=== PATIENT | male | born 1960 | race Two or more races ===

== ENCOUNTER 2017-02-21 16:13 | Emergency (ER) | payer MEDICAID ==
[~2017-02-21] VITALS: Ht 175.3 cm; Wt 158.8 kg
[2017-02-21 16:32] VITALS: BP 137/80
[2017-02-21 17:41] LABS: Basophils # (auto) 0.1 uL; Basophils % (auto) 0.7 % (0.0-2.0); Eosinophils # (auto) 0.2 uL; Eosinophils % (auto) 1.6 % (0.0-7.0); Hematocrit 42.6 % (41.0-53.0); Hemoglobin 14.2 g/dL (13.5-17.5); Lymphocytes # (auto) 3.2 uL; Lymphocytes % (auto) 26.6 % (10.0-50.0); Mean Corpuscular Hemoglobin 27.5 pg (28.0-32.0); Mean Corpuscular Hgb Conc. 33.4 g/dL (32.0-36.0); Mean Corpuscular Volume 82.4 fL (80.0-100.0); Mean Platelet Volume 9.1 fL (6.9-10.8); Monocytes # (auto) 0.7 uL; Monocytes % (auto) 5.8 % (0.0-12.0); Neutrophils % (auto) 65.3 % (37.0-80.0); Nucleated Red Blood Cells % 0.1 %; Platelet Count (auto) 244 10^3/uL (140-450); Red Cell Distribution Width 17.8 % (11.8-14.3); White Blood Cell 12.2 10^3/uL (4.4-10.8)
[2017-02-21 18:01] LABS: Albumin 3.6 g/dL (3.4-5.0); BUN/Creatinine Ratio 9.6; Calcium 8.9 mg/dL (8.5-10.1); Potassium 3.9 mmol/L (3.5-5.1)
[2017-02-21 18:04] LABS: Bilirubin, Total 0.4 mg/dL (0.2-1.0); Total Protein 8.3 g/dL (6.4-8.2)
[2017-02-21 18:15] LABS: B-Type Natriuretic Peptide 16.07 pg/mL (0-100)
[2017-02-21 19:04] LABS: Temperature: 22.8 C (20.0-25.0)
== END 2017-02-21 23:40 | disposition left against medical advice (07) ==
LOC: ER 16:24
DX: R07.9 Chest pain, unspecified (principal); R06.02 Shortness of breath; Z53.21 Procedure and treatment not carried out due to patient leaving prior to being seen by health care provider
CPT/HCPCS: 36415; 71020; 80053; 83735; 83880; 84484; 85025; 85379; 93005

== ENCOUNTER 2020-02-28 05:16 | Inpatient (IN) | payer MEDICAID ==
[~2020-02-28] VITALS: Ht 188 cm; Wt 126.5 kg
[2020-02-28 08:33] LABS: Basophils # (auto) 0 10 ^3/uL (0-0.2); Basophils % (auto) 0.2 % (0.0-2.0); Eosinophils # (auto) 0 10 ^3/uL (0-0.8); Eosinophils % (auto) 0.1 % (0.0-7.0); Hematocrit 39.3 % (41.0-53.0); Lymphocytes # (auto) 0.6 10 ^3/uL (0.4-5.4); Lymphocytes % (auto) 6.6 % (10.0-50.0); Mean Corpuscular Hemoglobin 24.5 pg (28.0-32.0); Mean Corpuscular Hgb Conc. 33.2 g/dL (32.0-36.0); Mean Corpuscular Volume 73.7 fL (80.0-100.0); Monocytes # (auto) 0.6 10 ^3/uL (0-1.3); Monocytes % (auto) 6.2 % (0.0-12.0); Neutrophils # (auto) 8.1 10 ^3/uL (1.6-8.6); Neutrophils % (auto) 86.9 % (37.0-80.0); Nucleated Red Blood Cells % 0.1 %; Platelet Count (auto) 473 10^3/uL (140-450); Red Blood Cells 5.33 10^6/uL (4.5-5.90); Red Cell Distribution Width 18.2 % (11.8-14.3); White Blood Cell 9.3 10^3/uL (4.4-10.8)
[2020-02-28 08:56] LABS: Potassium 4.5 mmol/L (3.5-5.1)
[2020-02-28 09:32] LABS: Albumin 2.8 g/dL (3.4-5.0); BUN/Creatinine Ratio 17.2; Bilirubin, Total 0.9 mg/dL (0.2-1.0); Calcium 8.5 mg/dL (8.5-10.1); Total Protein 8.6 g/dL (6.4-8.2)
[2020-02-28] MEDS ORDERED: DexAMETHasone SOD PHOS 10MG/1ML VIAL INJ IV ONE (11:45)
[2020-02-28] MEDS ORDERED: ASPirin 81 mg TAB PO ONE (11:45)
[2020-02-28] MEDS ORDERED: ENOXAPARIN SOD 150 MG/1 ML SYRINGE SC ONE (11:45)
[2020-02-28] MEDS ORDERED: cefTRIAXone 1GM/50ML D5W 50 ML IV ONE (11:45)
[2020-02-28] MEDS ORDERED: DOXYCYCLINE 100MG/250ML 250 ML IV ONE (11:45)
[2020-02-28] MEDS ORDERED: REMDESIVIR PER PHARMACY 0 ML IV SCH (17:00)
[2020-02-28] MEDS ORDERED: NITROGLYCERIN 0.4 MG SL TAB SL PRN (17:00)
[2020-02-28] MEDS ORDERED: ACETAMINOPHEN 500 MG TAB PO PRN (17:00)
[2020-02-28] MEDS ORDERED: ALBUTEROL SULF HFA 90MCG INH 200DOSE IN PRN (17:00)
[2020-02-28] MEDS ORDERED: MORPHINE SULF INJ 2 MG/ML SYRINGE 1ML IV PRN (17:00)
[2020-02-28 18:15] LABS: Magnesium 3.1 mg/dL (1.6-2.6)
[2020-02-28 18:24] LABS: CRP High Sensitivity 17.9 mg/dL (< 0.3)
[2020-02-28] MEDS ORDERED: ZINC SULFATE 220mg CAP or TAB PO SCH (18:47)
[2020-02-28] MEDS ORDERED: CHOLECALCIFEROL (VITD3) 2,000 UNIT CAP PO SCH (18:47)
[2020-02-28] MEDS ORDERED: ASCORBIC ACID 1,000 MG TAB PO SCH (18:47)
[2020-02-28 19:15] LABS: Lactic Acid w/Reflex 2.2 mmol/L (0.4-2.0)
[2020-02-28 19:30] LABS: INR 1.13 (0.9-1.15); Partial Thromboplastin Time 33.5 sec (23.0-31.2)
[2020-02-28] MEDS ORDERED: BUDESONIDE (INHALATION) 180 MCG IH IN SCH (22:00)
[2020-02-28] MEDS: DOXYCYCLINE 100MG/250ML 250 ML IV SCH (23:22)
[2020-02-28] MEDS: ENOXAPARIN SOD 40 MG/0.4 ML SYRINGE SC SCH (23:23)
[2020-02-29 06:03] LABS: Basophils # (auto) 0 10 ^3/uL (0-0.2); Basophils % (auto) 0.6 % (0.0-2.0); Eosinophils # (auto) 0 10 ^3/uL (0-0.8); Eosinophils % (auto) 0.1 % (0.0-7.0); Hematocrit 38.6 % (41.0-53.0); Hemoglobin 12.7 g/dL (13.5-17.5); Lymphocytes # (auto) 0.9 10 ^3/uL (0.4-5.4); Lymphocytes % (auto) 13.8 % (10.0-50.0); Mean Corpuscular Hemoglobin 24.7 pg (28.0-32.0); Mean Corpuscular Volume 74.8 fL (80.0-100.0); Monocytes # (auto) 0.5 10 ^3/uL (0-1.3); Monocytes % (auto) 7.3 % (0.0-12.0); Neutrophils # (auto) 5.1 10 ^3/uL (1.6-8.6); Neutrophils % (auto) 78.2 % (37.0-80.0); Nucleated Red Blood Cells % 0.2 %; Platelet Count (auto) 501 10^3/uL (140-450); Red Blood Cells 5.16 10^6/uL (4.5-5.90); White Blood Cell 6.6 10^3/uL (4.4-10.8)
[2020-02-29 06:58] LABS: Potassium 4.6 mmol/L (3.5-5.1)
[2020-02-29 07:01] LABS: Albumin 2.7 g/dL (3.4-5.0); BUN/Creatinine Ratio 22.8
[2020-02-29 07:12] LABS: Bilirubin, Total 0.7 mg/dL (0.2-1.0); Total Protein 8.5 g/dL (6.4-8.2)
[2020-02-29] MEDS: DOXYCYCLINE 100MG/250ML 250 ML IV SCH ×2 (09:48→21:04)
[2020-02-29] MEDS: ENOXAPARIN SOD 40 MG/0.4 ML SYRINGE SC SCH ×2 (09:48→21:33)
[2020-02-29] MEDS: ASPirin-EC 81 mg tab PO SCH (10:00)
[2020-02-29] MEDS ORDERED: DexAMETHasone SOD PHOS 10MG/1ML VIAL INJ IV SCH (10:00)
[2020-02-29] MEDS ORDERED: FUROSEMIDE 40 MG/4 ML VIAL IV ONE (14:00)
[2020-02-29] MEDS: FUROSEMIDE 20 MG/2 ML VIAL IV SCH (18:00)
[2020-02-29] MEDS: methylPREDNISolone SOD SUCC 40 MG/ML VL IV SCH ×2 (19:02→21:04)
[2020-02-29] MEDS: POTASSIUM CHL 10 Meq TABLET PO SCH (21:04)
[2020-03-01] MEDS: FUROSEMIDE 20 MG/2 ML VIAL IV SCH ×2 (05:28→18:33)
[2020-03-01] MEDS: methylPREDNISolone SOD SUCC 40 MG/ML VL IV SCH ×3 (05:28→22:35)
[2020-03-01 07:25] LABS: Urine Bacteria FEW /hpf (None Seen); Urine Hyaline Cast FEW /lpf (0 - 2); Urine Mucus FEW (None Seen); Urine Specific Gravity 1.023 (1.001-1.035); Urine WBC 2 /hpf (0 - 3)
[2020-03-01 07:26] LABS: Urine Blood TRACE /uL (Negative)
[2020-03-01] MEDS: DOXYCYCLINE 100MG/250ML 250 ML IV SCH (10:00)
[2020-03-01] MEDS: ASPirin-EC 81 mg tab PO SCH (10:00)
[2020-03-01] MEDS: ENOXAPARIN SOD 40 MG/0.4 ML SYRINGE SC SCH ×3 (10:53→22:36)
[2020-03-01] MEDS: POTASSIUM CHL 10 Meq TABLET PO SCH ×2 (10:53→22:36)
[2020-03-01 11:02] LABS: Calcium 9.3 mg/dL (8.5-10.1); Potassium 4.9 mmol/L (3.5-5.1)
[2020-03-01 11:04] LABS: BUN/Creatinine Ratio 29.1
[2020-03-01] MEDS ORDERED: ALBUTEROL SULF HFA 90MCG INH 200DOSE IN PRN ×2 (19:15)
[2020-03-01] MEDS ORDERED: ACETAMINOPHEN 500 MG TAB PO PRN (19:15)
[2020-03-01] MEDS ORDERED: REMDESIVIR PER PHARMACY 0 ML IV SCH (19:15)
[2020-03-01] MEDS ORDERED: REMDESIVIR 200 MG in NS 210ml LOADING DOSE ADULT IV ONE (20:00)
[2020-03-01] MEDS ORDERED: DOXYCYCLINE 100 MG TAB/CAP PO SCH (22:00)
[2020-03-01] MEDS: BUDESONIDE (INHALATION) 180 MCG IH IN SCH (22:00)
[2020-03-01 22:19] LABS: Mean Corpuscular Volume 74.6 fL (80.0-100.0)
[2020-03-01 22:23] LABS: Hematocrit 37.4 % (41.0-53.0); Hemoglobin 12.6 g/dL (13.5-17.5); Mean Corpuscular Hemoglobin 25.1 pg (28.0-32.0); Mean Corpuscular Hgb Conc. 33.6 g/dL (32.0-36.0); Platelet Count (auto) 673 10^3/uL (140-450); Red Blood Cells 5.01 10^6/uL (4.5-5.90); Red Cell Distribution Width 18.6 % (11.8-14.3)
[2020-03-01 22:30] LABS: Albumin 2.7 g/dL (3.4-5.0); Calcium 9.1 mg/dL (8.5-10.1); Magnesium 2.7 mg/dL (1.6-2.6); Potassium 4.8 mmol/L (3.5-5.1)
[2020-03-01 22:34] LABS: Lactic Acid w/Reflex 2.6 mmol/L (0.4-2.0)
[2020-03-01 22:37] LABS: Basophils % (manual) 0 (0.0-2.0); Blast Cells 0; Eosinophils % (manual) 0 (0-7); Monocytes % (manual) 0 (0-12); Myelocytes % 0; Promyelocytes % 0; Reactive Lymphocytes 0
[2020-03-01 22:38] LABS: BUN/Creatinine Ratio 29.4; Bilirubin, Total 0.6 mg/dL (0.2-1.0); CRP High Sensitivity 5.81 mg/dL (< 0.3); Total Protein 8.2 g/dL (6.4-8.2)
[2020-03-01 23:02] LABS: Band Neutrophils % (manual) 1; Lymphocytes % (manual) 11 (10.0-50.0); Metamyelocytes % 1
[2020-03-02 00:35] VITALS: BP 138/82
[2020-03-02] MEDS: DOXYCYCLINE 100MG/250ML 250 ML IV SCH ×3 (01:10→21:23)
[2020-03-02 05:45] LABS: Basophils # (auto) 0 10 ^3/uL (0-0.2); Eosinophils # (auto) 0 10 ^3/uL (0-0.8); Hemoglobin 12.6 g/dL (13.5-17.5); Monocytes # (auto) 0.7 10 ^3/uL (0-1.3); Nucleated Red Blood Cells % 0.1 %
[2020-03-02 05:48] LABS: Basophils % (auto) 0.2 % (0.0-2.0); Lymphocytes # (auto) 0.8 10 ^3/uL (0.4-5.4); Lymphocytes % (auto) 7.2 % (10.0-50.0); Mean Corpuscular Hemoglobin 24.9 pg (28.0-32.0); Mean Corpuscular Hgb Conc. 33.1 g/dL (32.0-36.0); Monocytes % (auto) 6.2 % (0.0-12.0); Neutrophils # (auto) 9.2 10 ^3/uL (1.6-8.6); Neutrophils % (auto) 86.4 % (37.0-80.0); Platelet Count (auto) 580 10^3/uL (140-450); Red Blood Cells 5.06 10^6/uL (4.5-5.90); Red Cell Distribution Width 18.5 % (11.8-14.3); White Blood Cell 10.7 10^3/uL (4.4-10.8)
[2020-03-02 05:54] LABS: Albumin 2.6 g/dL (3.4-5.0); Magnesium 2.7 mg/dL (1.6-2.6); Potassium 5.2 mmol/L (3.5-5.1)
[2020-03-02 05:58] LABS: BUN/Creatinine Ratio 33.1; Bilirubin, Total 0.5 mg/dL (0.2-1.0); Calcium 8.9 mg/dL (8.5-10.1); Total Protein 7.9 g/dL (6.4-8.2)
[2020-03-02] MEDS: FUROSEMIDE 20 MG/2 ML VIAL IV SCH (06:33)
[2020-03-02] MEDS: methylPREDNISolone SOD SUCC 40 MG/ML VL IV SCH (06:33)
[2020-03-02 08:00] VITALS: BP 133/86
[2020-03-02] MEDS ORDERED: cefTRIAXone 1GM/50ML D5W 50 ML IV SCH (09:00)
[2020-03-02] MEDS: POTASSIUM CHL 10 Meq TABLET PO SCH (09:20)
[2020-03-02] MEDS: ASPirin-EC 81 mg tab PO SCH (09:22)
[2020-03-02] MEDS: ZINC SULFATE 220mg CAP or TAB PO SCH (09:23)
[2020-03-02] MEDS: ASCORBIC ACID 1,000 MG TAB PO SCH (09:23)
[2020-03-02] MEDS: CHOLECALCIFEROL (VITD3) 2,000 UNIT CAP PO SCH (09:23)
[2020-03-02] MEDS: DexAMETHasone SOD PHOS 10MG/1ML VIAL INJ IV SCH (09:24)
[2020-03-02] MEDS: ENOXAPARIN SOD 40 MG/0.4 ML SYRINGE SC SCH ×3 (09:26→21:23)
[2020-03-02] MEDS: AZITHROMYCIN 500MG/ 250ML 250 ML IV SCH ×2 (09:26→11:22)
[2020-03-02] MEDS: BUDESONIDE (INHALATION) 180 MCG IH IN SCH ×2 (10:00→21:42)
[2020-03-02] MEDS ORDERED: AZITHROMYCIN 500MG/ 250ML 250 ML IV SCH (10:00)
[2020-03-02] MEDS ORDERED: HYDROcodone-ACET 10/325MG TAB PO PRN (11:00)
[2020-03-02] MEDS ORDERED: MORPHINE SULF INJ 2 MG/ML SYRINGE 1ML IV PRN ×2 (13:30→18:30)
[2020-03-02] MEDS ORDERED: REMDESIVIR 100 MG in SODIUM CHL 0.9% 250 ML IV SCH (15:00)
[2020-03-02 16:00] VITALS: BP 131/93
[2020-03-02] MEDS ORDERED: ACLI1AER2 IN (18:20)
[2020-03-02] MEDS ORDERED: FLUT0.05 NAS (18:20)
[2020-03-02] MEDS ORDERED: HYDR-4833 PO ×2 (18:20)
[2020-03-02] MEDS ORDERED: FLU220IH INH (18:20)
[2020-03-02] MEDS ORDERED: LOSA-39 PO (18:20)
[2020-03-02] MEDS ORDERED: OMEP20TA PO (18:20)
[2020-03-02] MEDS ORDERED: LORA2TAB89 PO (18:20)
[2020-03-02] MEDS ORDERED: DOCU-94 PO (18:20)
[2020-03-02] MEDS ORDERED: ALBU2TAB4 PO (18:20)
[2020-03-02] MEDS ORDERED: ALBUAER3 IN (18:28)
[2020-03-02] MEDS: SALINE 0.65 % NASAL SPRAY 45ML BOTTLE EACHNOSTRI SCH (21:22)
[2020-03-03] VITALS: BP 126/77
[2020-03-03 06:55] LABS: Basophils # (auto) 0 10 ^3/uL (0-0.2); Eosinophils # (auto) 0 10 ^3/uL (0-0.8); Mean Corpuscular Hemoglobin 24.4 pg (28.0-32.0); Nucleated Red Blood Cells % 0.1 %
[2020-03-03 06:58] LABS: Basophils % (auto) 0.1 % (0.0-2.0); Eosinophils % (auto) 0.2 % (0.0-7.0); Hemoglobin 13.8 g/dL (13.5-17.5); Lymphocytes # (auto) 1.3 10 ^3/uL (0.4-5.4); Lymphocytes % (auto) 10.8 % (10.0-50.0); Mean Corpuscular Hgb Conc. 32.8 g/dL (32.0-36.0); Mean Corpuscular Volume 74.5 fL (80.0-100.0); Monocytes # (auto) 0.6 10 ^3/uL (0-1.3); Monocytes % (auto) 4.7 % (0.0-12.0); Neutrophils # (auto) 10.5 10 ^3/uL (1.6-8.6); Neutrophils % (auto) 84.2 % (37.0-80.0); Platelet Count (auto) 719 10^3/uL (140-450); Red Blood Cells 5.63 10^6/uL (4.5-5.90); Red Cell Distribution Width 18.5 % (11.8-14.3); White Blood Cell 12.5 10^3/uL (4.4-10.8)
[2020-03-03 07:11] LABS: Potassium 4.2 mmol/L (3.5-5.1)
[2020-03-03 07:23] LABS: Albumin 2.9 g/dL (3.4-5.0); BUN/Creatinine Ratio 34.4; Bilirubin, Total 0.7 mg/dL (0.2-1.0); CRP High Sensitivity 2.3 mg/dL (< 0.3); Calcium 9.2 mg/dL (8.5-10.1); Total Protein 8.3 g/dL (6.4-8.2)
[2020-03-03 08:00] VITALS: BP 134/61
[2020-03-03] MEDS: ASCORBIC ACID 1,000 MG TAB PO SCH (10:00)
[2020-03-03] MEDS: ZINC SULFATE 220mg CAP or TAB PO SCH (10:00)
[2020-03-03] MEDS: ASPirin-EC 81 mg tab PO SCH (10:00)
[2020-03-03] MEDS: CHOLECALCIFEROL (VITD3) 2,000 UNIT CAP PO SCH (10:00)
[2020-03-03] MEDS: FUROSEMIDE 20 MG/2 ML VIAL IV SCH (10:00)
[2020-03-03] MEDS: BUDESONIDE (INHALATION) 180 MCG IH IN SCH ×2 (10:00→18:49)
[2020-03-03] MEDS: SALINE 0.65 % NASAL SPRAY 45ML BOTTLE EACHNOSTRI SCH ×2 (10:00→22:00)
[2020-03-03] MEDS ORDERED: MORPHINE SULFATE 4 MG/ML SYR/VIAL ONE (10:10)
[2020-03-03] MEDS ORDERED: MORPHINE SULFATE 4 MG/ML SYR/VIAL IV ONE (10:15)
[2020-03-03] MEDS ORDERED: HYDROcodone-ACET 10/325MG TAB PO PRN (10:45)
[2020-03-03] MEDS: DOXYCYCLINE 100MG/250ML 250 ML IV SCH ×2 (11:04→22:48)
[2020-03-03] MEDS: DexAMETHasone SOD PHOS 10MG/1ML VIAL INJ IV SCH (11:05)
[2020-03-03] MEDS: ENOXAPARIN SOD 40 MG/0.4 ML SYRINGE SC SCH ×2 (11:05→22:47)
[2020-03-03] MEDS: LORazepam 2MG/ML-1ML VIAL IV PRN ×3 (13:09→22:47)
[2020-03-03 16:00] VITALS: BP 108/58
[2020-03-03] MEDS: ALPRAZolam 0.25 MG TAB PO SCH (19:46)
[2020-03-04] VITALS: BP 103/61
[2020-03-04] MEDS: MORPHINE SULFATE 4 MG/ML SYR/VIAL IV PRN ×2 (04:05→10:16)
[2020-03-04] MEDS ORDERED: HALOPERIDOL LACTATE 5 MG/ML INJ VIAL ONE (04:53)
[2020-03-04] MEDS ORDERED: HALOPERIDOL LACTATE 5 MG/ML INJ VIAL IM PRN (05:00)
[2020-03-04] MEDS: ALPRAZolam 0.25 MG TAB PO SCH ×3 (06:00→21:49)
[2020-03-04 07:43] LABS: Calcium 9.3 mg/dL (8.5-10.1); Potassium 4.9 mmol/L (3.5-5.1)
[2020-03-04 07:49] LABS: Albumin 2.9 g/dL (3.4-5.0); BUN/Creatinine Ratio 25.7; Bilirubin, Total 0.9 mg/dL (0.2-1.0)
[2020-03-04 08:00] VITALS: BP 141/101
[2020-03-04] MEDS: ASCORBIC ACID 1,000 MG TAB PO SCH (10:00)
[2020-03-04] MEDS: DOXYCYCLINE 100MG/250ML 250 ML IV SCH ×2 (10:00→21:49)
[2020-03-04] MEDS: ZINC SULFATE 220mg CAP or TAB PO SCH (10:00)
[2020-03-04] MEDS: FUROSEMIDE 20 MG/2 ML VIAL IV SCH (10:00)
[2020-03-04] MEDS: BUDESONIDE (INHALATION) 180 MCG IH IN SCH ×2 (10:00→19:28)
[2020-03-04] MEDS: SALINE 0.65 % NASAL SPRAY 45ML BOTTLE EACHNOSTRI SCH ×2 (10:00→21:49)
[2020-03-04] MEDS: ASPirin-EC 81 mg tab PO SCH (10:00)
[2020-03-04] MEDS: DexAMETHasone SOD PHOS 10MG/1ML VIAL INJ IV SCH (10:00)
[2020-03-04] MEDS: CHOLECALCIFEROL (VITD3) 2,000 UNIT CAP PO SCH (10:00)
[2020-03-04] MEDS: LORazepam 2MG/ML-1ML VIAL IV PRN (10:13)
[2020-03-04] MEDS ORDERED: LORazepam 2MG/ML-1ML VIAL ONE (10:58)
[2020-03-04] MEDS ORDERED: diphenhdrAMINE HCL 50 MG/1 ML VL ONE (11:02)
[2020-03-04] MEDS: diphenhdrAMINE HCL 50 MG/1 ML VL IV PRN ×2 (11:05→21:48)
[2020-03-04] MEDS ORDERED: LORazepam 2MG/ML-1ML VIAL IV PRN (12:15)
[2020-03-04] MEDS ORDERED: LORazepam 2MG/ML-1ML VIAL IV ONE (12:15)
[2020-03-04 16:00] VITALS: BP 153/84
[2020-03-04] MEDS ORDERED: DEXA6TAB6 PO (16:02)
[2020-03-04 18:05] VITALS: BP 127/70
[2020-03-05] MEDS ORDERED: ENOXAPARIN SOD 40 MG/0.4 ML SYRINGE SC SCH (10:00)
== END 2020-03-05 00:40 | disposition hospice, home (50) | DRG 137 ==
LOC: ER 05:16 → EDBD 05:16 → TELE 05:17 → TELE-WESTW 03-01 23:58 → UNDODISIN 03-04 23:57
PROVIDERS: ADMIT Hospitalist; ATTEND Hospitalist
PROC: XW033E5 Introduction of Remdesivir Anti-infective into Peripheral Vein, Percutaneous Approach, New Technology Group 5 (ICD-10-PCS; principal; 2020-02-28)
PROC: 5A09357 Assistance with Respiratory Ventilation, Less than 24 Consecutive Hours, Continuous Positive Airway Pressure (ICD-10-PCS; 2020-03-03)
PROC: 5A09357 Assistance with Respiratory Ventilation, Less than 24 Consecutive Hours, Continuous Positive Airway Pressure (ICD-10-PCS; 2020-03-04)
DX: U07.1 COVID-19 (principal); J96.01 Acute respiratory failure with hypoxia; J12.82 Pneumonia due to coronavirus disease 2019; N17.9 Acute kidney failure, unspecified; E44.0 Moderate protein-calorie malnutrition; I10 Essential (primary) hypertension; E66.01 Morbid (severe) obesity due to excess calories; Z68.35 Body mass index [BMI] 35.0-35.9, adult; E78.5 Hyperlipidemia, unspecified; Z66 Do not resuscitate; F17.210 Nicotine dependence, cigarettes, uncomplicated; F41.9 Anxiety disorder, unspecified; G93.40 Encephalopathy, unspecified; J44.0 Chronic obstructive pulmonary disease with (acute) lower respiratory infection; R79.1 Abnormal coagulation profile; J98.11 Atelectasis; N20.0 Calculus of kidney; N39.0 Urinary tract infection, site not specified; Z78.1 Physical restraint status; Z82.49 Family history of ischemic heart disease and other diseases of the circulatory system; Z90.49 Acquired absence of other specified parts of digestive tract
CPT/HCPCS: 36415; 36600; 70450; 71045; 71250; 80048; 80053; 81001; 82140; 82728; 82805; 83036; 83605; 83615; 83735; 83880; 84443; 84484; 85007; 85025; 85027; 85379; 85610; 85730; 86141; 87040; 87426; 87804; 93005; 93306; 93970; 94660; 96365; 96375; 99291; G0378; J0696; J1100; J3490